=== PATIENT | female | born 1990 | race Caucasian/White ===

== ENCOUNTER 2017-03-14 23:00 | Emergency (ER) | payer BC ==
[2017-03-14 23:41] LABS: Prothrombin Time 21.2 SEC (12.0-14.7)
--- NOTE | 2017-03-15 08:45 | ULT ---
PRELIMINARY REPORT/[facility]/EMERGENCY AFTER HOURS PROCEDURE: EXAM: US Duplex Left Lower Extremity Veins CLINICAL HISTORY: 27 years old, female; Pain; Leg, upper; Left; Patient HX: HX: Dvt in left calf (2010) TECHNIQUE: Real-time ultrasound scan of the veins of the left lower extremity with color Doppler flow, spectral waveform analysis and compression. COMPARISON: No relevant prior studies available. FINDINGS: Deep veins: Unremarkable. No DVT in the visualized common femoral, femoral, proximal deep femoral or popliteal veins. The veins demonstrate normal color flow, are normally compressible, with normal phas ic flow and/or augmentation response. Superficial veins: Unremarkable. No thrombus in the visualized great saphenous vein. Soft tissues: No acute findings. No popliteal cyst. IMPRESSION: No sonographic evidence for deep venous thrombosis in the left lower extremity. Thank you for allowing us to participate in the care of your patient. Dictated and Authenticated by: Rosa Meza MD 03/15/2017 12:24 AM Central Time ([place] & [place]) FINAL REPORT LEFT LOWER EXTREMITY VENOUS DUPLEX ULTRASOUND INCLUDING COLOR AND SPECTRAL DOPPLER IMAGING: EMERGENT AFTER HOURS EXAM TIME: 11:48 p.m. DATE: 03/14/17. Exam performed from groin to ankle including visualized greater saphenous, common femoral, superficia l femoral, profunda femoral, popliteal, trifurcation, and posterior tibial vein regions. Phasic flow noted at all levels. No evidence of deep venous thrombosis. POS: [place]
== END 2017-03-15 00:31 | disposition home or self-care (01) ==
LOC: SCSER 23:00
DX: M79.89 Other specified soft tissue disorders (principal); F41.9 Anxiety disorder, unspecified; Z86.718 Personal history of other venous thrombosis and embolism; Z79.01 Long term (current) use of anticoagulants; Z79.899 Other long term (current) drug therapy
CPT/HCPCS: 85610

== ENCOUNTER 2017-10-07 07:55 | Outpatient (CLI) | payer BC | END 2017-10-07 07:56 | disposition home or self-care (01) | LOC: BICRAD 07:55 | PROVIDERS: ATTEND Internal Medicine Rheumatology | DX: M54.5 Low back pain (principal); M47.894 Other spondylosis, thoracic region | CPT/HCPCS: 72072; 72100 ==